=== PATIENT | male | born 1940 | race Caucasian/White ===

== ENCOUNTER 2017-06-01 09:56 | Outpatient (CLI) | payer MEDICARE ==
--- NOTE | 2017-06-01 11:12 | RAD ---
TWO VIEWS CHEST: Comparison: 12-29-16 History: Dyspnea. FINDINGS: Two views of the chest show normal sized cardiomediastinal silhouette. There is no evidence of conso lidation, mass, or pleural effusion. The bones are unremarkable. IMPRESSION: No evidence of acute cardiopulmonary disease. POS: [facility]
== END 2017-06-01 09:57 | disposition home or self-care (01) ==
LOC: RAD 09:56
PROVIDERS: ATTEND Internal Medicine Critical Care Medicine
DX: R06.00 Dyspnea, unspecified (principal)
CPT/HCPCS: 71020

== ENCOUNTER 2017-06-12 15:59 | Observation (INO) | payer MEDICARE ==
[2017-06-12] MEDS ORDERED: Morphine 2 MG/ML SYRINGE ONE ×2 (16:24→18:28)
[2017-06-12] MEDS ORDERED: Ondansetron HCl/PF 4 MG/2 ML Vial ONE (16:24)
--- NOTE | 2017-06-12 16:33 | RAD ---
RIGHT SHOULDER TWO VIEWS: History: Fell on shoulder. FINDINGS: There is a fracture which extends through the humeral neck and greater tuberosity region. This is mi nimally displaced or angulated. There are marked arthritic changes of the glenohumeral joint space. IMPRESSION: Humeral neck fracture. POS: [facility]
[2017-06-12] MEDS ORDERED: HYDROcodone/Acetaminophen 10/325 mg Tablet ONE (17:35)
[2017-06-12 20:24] LABS: #Lymphocytes 1.7 thou/uL (1.20-3.40); #Monocytes 0.8 thou/uL (0.11-0.59); #Neutrophils 11.8 thou/uL (1.40-6.50); %Eosinophils 0.3 % (0.0-10.0); %Monocytes 5.5 % (0.0-10.0); Hematocrit 45.4 % (42.0-52.0); Mean Platelet Volume 6.1 fL (7.4-10.4); Red Blood Cell (RBC) Count 4.78 mill/uL (4.70-6.10); White Blood Cell (WBC) Count 14.3 thou/uL (4.8-10.8)
[2017-06-12 20:30] LABS: PTT 23.7 SEC (22.9-36.1); Prothrombin Time 14.4 SEC (12.0-14.7)
[2017-06-12] MEDS ORDERED: Melatonin 3 MG TAB PO PRN (20:31)
[2017-06-12] MEDS ORDERED: HYDROcodone/Acetaminophen 10/325 mg Tablet PO PRN (20:42)
[2017-06-12 20:45] LABS: ALT (SGPT) 26 U/L (8-55); AST (SGOT) 20 U/L (5-34); Alkaline Phosphatase 74 U/L (40-150); Anion Gap 13 mmol/L (10-20); BUN (Urea Nitrogen) 19 mg/dL (8.4-25.7); Bilirubin, Total 0.6 mg/dL (0.2-1.2); Calc. Creatinine Clearance 0 mL/min (70-130); Carbon Dioxide 28 mmol/L (23-31); Chloride 99 mmol/L (98-107); Estimated GFR-MDRD 65; Globulin 2.9 g/dL (2.4-3.5); Protein, Total 6.8 g/dL (5.8-8.1)
[2017-06-12] MEDS ORDERED: Morphine 2 MG/ML SYRINGE SLOW IVP PRN (20:45)
[2017-06-12] MEDS ORDERED: Levalbuterol HCl 0.63 MG/3 ML NEB NEB PRN (20:47)
[2017-06-12] MEDS ORDERED: Carvedilol 6.25 MG TAB PO SCH (21:00)
[2017-06-12] MEDS ORDERED: Ondansetron ODT 4 MG TAB SL PRN (21:24)
[2017-06-12] MEDS ORDERED: Acetaminophen 325 MG TAB PO PRN (21:24)
[2017-06-12] MEDS ORDERED: Ondansetron HCl/PF 4 MG/2 ML Vial IVP PRN (21:24)
[2017-06-12] MEDS ORDERED: Amlodipine 5 MG TAB PO SCH (22:00)
[2017-06-12] MEDS ORDERED: Atorvastatin Calcium 40 MG TAB PO SCH (22:00)
--- NOTE | 2017-06-12 23:19 | HP ---
DATE OF ADMISSION: 06/12/2017 PRIMARY CARE PHYSICIAN: Dr. Halima Negron. CHIEF COMPLAINT: Right shoulder pain. HISTORY OF PRESENT ILLNESS: Mr. De Oliveira is a 76-year-old white male with history of coronary artery di sease, hypertension. He was walking with his dog this afternoon when the dog ran and he fell on his right shoulder. He was able to get up and go back to the house with the help of a neighbour, lay d own for about 20 minutes and had asked for ibuprofen, but the pain got worse that the EMS was jd clifton and he was given pain medicine. When he was brought to the emergency room, the x-ray done showe d humeral fracture and the arm sling was placed and being admitted for further evaluation and pain c ontrol. ALLERGIES: To COUMADIN, had bleeding from the COUMADIN. PAST MEDICAL HISTORY: History of hypertension, asthma, CAD, history of atrial fibrillation, he had mentioned possibly developing deep venous thrombosis, insomnia, hypothyroidism, benign prostatic hyp ertrophy, had also mentioned had a sternal osteomyelitis that requiring IV antibiotics for a prolong ed period of time. PAST SURGICAL HISTORY: Sternum had been removed, history of bypass, bilateral total knee replacemen t, cataract surgery, tonsillectomy, history of depression. FAMILY HISTORY: History of Burkitt's lymphoma, father. SOCIAL HISTORY: Nonsmoker, admits to alcohol use. REVIEW OF SYSTEMS: Positive for intermittent dizziness, denied any headache. No nausea or vomiting . Positive for right shoulder pain. Denied any diarrhea or constipation. No hematemesis, melena, hemoptysis. Denied any diarrhea, no change in weight. Past history of depression. Denied any head ache. OBJECTIVE: VITAL SIGNS: Blood pressure 151/75, heart rate 67, respiratory rate 20, temperature 98.1, satting 9 5. GENERAL: The patient is awake and alert. HEENT: Pupils equally reactive to light. HEART: Normal S1, S2 with a scar from the sternum from the previous bypass and sternal surgery. Ar m on the sling, right. LUNGS: Clear anteriorly. ABDOMEN: Soft, positive for bowel sounds. EXTREMITIES: No edema. MEDICATIONS: The patient is currently on the following medications: Aspirin 325 mg p.o. daily, Wel lbutrin 300 mg p.o. daily, Coreg 6.25 q.a.m. and 12.5 q.p.m., Synthroid 50 mcg daily, fish oil, [place] pro 20 mg p.o. daily, amlodipine 5 mg p.o. daily, isosorbide mononitrate 30 mg p.o. daily, Lasix he only take it intermittently may be once a week, finasteride 5 mg p.o. daily, Rapaflo 4 mg p.o. daily , Lipitor 20 mg p.o. daily, Breo inhaler. X-RAY FINDINGS: The x-ray done showed right humeral neck fracture. LABORATORY DATA: White count of 14.3, hemoglobin 14.8 with platelet of 248. ASSESSMENT AND PLAN: The patient also has some abrasion noted in both knees. 1. Right humeral fracture. 2. History of coronary artery disease. 3. Hypertension. 4. Dyslipidemia. 5. History of asthma. 6. Depression. 7. Benign prostatic hypertrophy. 8. Leukocytosis. PLAN: Will be to resume the patient's home medication. We will continue pain medicine. Consult O rthopedic. Continue arm sling. Check BMP tomorrow. We will add sequential compression devices for deep venous thrombosis prophylaxis.
[2017-06-13] MEDS: HYDROcodone/Acetaminophen 10/325 mg Tablet PO PRN ×2 (01:34→07:26)
[2017-06-13 06:02] LABS: #Eosinphils 0.2 thou/uL (0.0-0.7); #Lymphocytes 2.1 thou/uL (1.20-3.40); #Monocytes 1.1 thou/uL (0.11-0.59); #Neutrophils 9.2 thou/uL (1.40-6.50); %Eosinophils 1.3 % (0.0-10.0); %Lymphocytes 16.4 % (21.0-51.0); Hematocrit 43.5 % (42.0-52.0); Mean Platelet Volume 6.2 fL (7.4-10.4); Red Blood Cell (RBC) Count 4.55 mill/uL (4.70-6.10); White Blood Cell (WBC) Count 12.6 thou/uL (4.8-10.8)
[2017-06-13 06:27] LABS: Anion Gap 7 mmol/L (10-20); BUN (Urea Nitrogen) 20 mg/dL (8.4-25.7); Calc. Creatinine Clearance 105 mL/min (70-130); Carbon Dioxide 32 mmol/L (23-31); Chloride 100 mmol/L (98-107); Estimated GFR-MDRD 74
[2017-06-13] MEDS ORDERED: Silodosin 4 MG CAP PO SCH (08:00)
[2017-06-13] MEDS ORDERED: Atorvastatin Calcium 40 MG TAB PO SCH ×2 (09:00→21:00)
[2017-06-13] MEDS ORDERED: Hydrochlorothiazide 25 MG TAB PO SCH (09:00)
[2017-06-13] MEDS ORDERED: Finasteride 5 MG TAB PO SCH (09:00)
[2017-06-13] MEDS ORDERED: Aspirin 325 mg Enteric Coated Tablet PO SCH (09:00)
[2017-06-13] MEDS ORDERED: Bupropion 150 MG XL TAB PO SCH (09:00)
[2017-06-13] MEDS ORDERED: Escitalopram Oxalate 20 mg Tablet PO SCH (09:00)
[2017-06-13] MEDS ORDERED: BREO INH SCH (09:00)
[2017-06-13] MEDS ORDERED: FLU VACC TS2017-18 (>65YR) 0.5 ML SYRINGE IM ONE (09:00)
[2017-06-13] MEDS ORDERED: Amlodipine 5 MG TAB PO SCH ×2 (09:00→21:00)
[2017-06-13 11:28] VITALS: BP 123/73; TEMP 97.7
--- NOTE | 2017-06-13 11:43 | DIS ---
PRIMARY CARE PHYSICIAN: Dr. Halima Negron DATE OF ADMISSION: 06/12/2017 DATE OF DISCHARGE: 06/13/2017 DISCHARGE DIAGNOSES: 1. Intractable pain. 2. Fall with right humeral fracture. 3. Hypertension. 4. Asthma. 5. Coronary artery disease. 6. Chronic atrial fibrillation. 7. Hypothyroidism. 8. Benign prostatic hypertrophy. 9. Past osteomyelitis. CONSULTATIONS: Dr. Eric with Orthopedics. PROCEDURES: None. 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 He sustained an acute onset right humeral fracture, wa s brought to the emergency department for evaluation. In the ER, he was found to be medically stable, but was having intractable pain, so we were consulte d for admission. HOSPITAL COURSE: The patient was seen and examined by Dr. Álvarez in the emergency department. The pa tient was placed in observation overnight and started on pain control with hydrocodone. Overnight, the pain came under good control and he was seen by Orthopedic this morning and arranged for outpatient follow up in about a week. The patient was otherwise stable for discharge and was di scharged home in stable condition. DISCHARGE MEDICATIONS: 1. Hydrocodone/APAP 10/325 one to two p.o. q.6 hours p.r.n. moderate to severe pain, prescription g iven for 42 with no refills. 2. Aspirin 325 mg daily. 3. Lipitor 40 mg at bedtime. 4. Carvedilol 12.5 mg p.o. b.i.d. 5. Vitamin D2 50,000 units 1 cap daily. 6. Citalopram 20 mg p.o. daily. 7. Proscar 5 mg daily. 8. Fish oil 1000 mg daily. 9. Breo Ellipta 200/20 1 inhaled daily. 10. Hydrochlorothiazide 25 mg daily. 11. Isosorbide mononitrate 30 mg daily. 12. Levothyroxine 100 mcg daily. 13. Melatonin 10 mg p.o. at bedtime p.r.n. insomnia. 14. Silodosin 4 mg p.o. daily. 15. Ventolin HFA 2 puffs q.4h. p.r.n. shortness of breath. 16. Vitamin E 400 mg daily. 17. Amlodipine 5 mg p.o. at bedtime. 18. Wellbutrin-XL 300 mg p.o. q.a.m. 19. Prednisone 10 mg daily. PHYSICAL EXAMINATION: The patient was seen and examined on the day of discharge. Discharge plan an d disposition were discussed with the patient face to face at the bedside. FOLLOWUP APPOINTMENTS: 1. PCP within a week. 2. Dr. Eric in 7-10 days. DISCHARGE CONDITION: Stable. DISPOSITION: The patient will be discharged home via private vehicle. DISCHARGE ACTIVITY: As tolerated, orthopedic limitations to right arm and to keep sling on. DISCHARGE DIET: As preadmission.
== END 2017-06-13 12:26 | disposition home or self-care (01) ==
LOC: ERS 15:59 → SURG B 19:20
PROVIDERS: ADMIT Internal Medicine; ATTEND Internal Medicine
DX: S42.301A Unspecified fracture of shaft of humerus, right arm, initial encounter for closed fracture (principal); I48.2 Chronic atrial fibrillation; E03.9 Hypothyroidism, unspecified; Z88.8 Allergy status to other drugs, medicaments and biological substances; Z79.899 Other long term (current) drug therapy; Z90.89 Acquired absence of other organs; Z95.1 Presence of aortocoronary bypass graft; Z96.653 Presence of artificial knee joint, bilateral; Z98.890 Other specified postprocedural states
CPT/HCPCS: 73030; 80048; 80053; 85025 ×2; 85610; 85730; 90732; 96374; 96375; 96376 ×2; 99285; G0008; G0009; G0378; Q2036; 36415; 90471; 90682; J2270; J2405

== ENCOUNTER 2017-08-29 13:11 | Outpatient (CLI) | payer MEDICARE ==
--- NOTE | 2017-08-29 14:40 | RAD ---
CHEST PA AND LATERAL TWO VIEWS: History: 76-year-old male with dyspnea. Comparison: 06-01-17 FINDINGS: Heart size is normal. No confluent pneumonia, overt edema, or pleural effusion. Stable right shoulder joint arthrosis. IMPRESSION: Stable appearing chest. No acute intrathoracic disease. Atherosclerosis of the aorta with ectasia. POS: [facility]
== END 2017-08-29 13:12 | disposition home or self-care (01) ==
LOC: RAD 13:11
PROVIDERS: ATTEND Internal Medicine Critical Care Medicine
DX: R06.00 Dyspnea, unspecified (principal); I70.0 Atherosclerosis of aorta; I77.819 Aortic ectasia, unspecified site
CPT/HCPCS: 71046

== ENCOUNTER 2018-02-16 10:31 | Outpatient (CLI) | payer MEDICARE ==
--- NOTE | 2018-02-16 12:21 | RAD ---
CHEST TWO VIEWS: History: Dyspnea. Comparison: 08-29-17 FINDINGS: Cardiac silhouette is upper limits of normal in size. Pulmonary vasculature is accentuated by shallow inspiration. Mediastinum midline with aortic calcification. Thin metallic wire over the anterior mar gin on the right ventricle and other post-operative changes are stable. Lobulation of the posterior a spect of the right hemidiaphragm is apparent. No lobar consolidation, pneumothorax or pleural fluid. IMPRESSION: 1. Atherosclerosis. 2. Chronic type findings are stable. POS: [facility]
== END 2018-02-16 10:32 | disposition home or self-care (01) ==
LOC: RAD 10:31
PROVIDERS: ATTEND Internal Medicine Critical Care Medicine
DX: R06.00 Dyspnea, unspecified (principal); I70.0 Atherosclerosis of aorta
CPT/HCPCS: 71046

== ENCOUNTER 2018-10-04 13:24 | Outpatient (CLI) | payer MEDICARE ==
--- NOTE | 2018-10-04 13:59 | RAD ---
TWO VIEW CHEST: INDICATIONS: Dyspnea. COMPARISON: 02/16/2018 FINDINGS: There is stable size of the cardiac silhouette with redemonstration of an anteriorly located metallic curve density overlying the anterior aspect of the cardiac silhouette. There is eventration of the right hemidiaphragm. No lobar consolidation, significant diffusion, or discrete pneumothorax. IMPRESSION: Stable chest. POS: [facility]
== END 2018-10-04 13:25 | disposition home or self-care (01) ==
LOC: RAD 13:24
PROVIDERS: ATTEND Internal Medicine Critical Care Medicine
DX: R06.00 Dyspnea, unspecified (principal)
CPT/HCPCS: 71046

== ENCOUNTER 2021-01-26 09:22 | Outpatient (CLI) | payer MEDICARE | END 2021-01-26 09:23 | disposition home or self-care (01) | LOC: BICRAD 09:22 | PROVIDERS: ATTEND Internal Medicine Critical Care Medicine | DX: R06.00 Dyspnea, unspecified (principal) | CPT/HCPCS: 71046 ==

== ENCOUNTER 2024-08-28 13:12 | Outpatient (CLI) | payer MEDICARE, BC | END 2024-08-28 13:13 | disposition home or self-care (01) | LOC: RAD 13:12 | PROVIDERS: ATTEND Internal Medicine Critical Care Medicine | DX: R06.00 Dyspnea, unspecified (principal) | CPT/HCPCS: 71046 ==